=== PATIENT | male | born 1975 | race Caucasian/White ===

== ENCOUNTER 2020-09-14 12:31 | Emergency (ER) | payer OTHER, SELFPAY ==
[2020-09-14 12:35] VITALS: BP 125/84; PULSE 99; RESP 20; TEMP 36.8; O2SAT 98
--- NOTE | 2020-09-14 13:32 | ED.GENADULT ---
HPI - General Adult General Chief complaint: Ear Stated complaint: ear pain, throat pain x 1 week Time Seen by Provider: 09/14/20 12:43 Source: patient Mode of arrival: ambulatory Limitations: no limitations History of Present Illness HPI narrative: Patient presents with chief complaint of bilateral ear pain today left worse than right accompanied by sore throat for 1 week. Patient denies fever, chills, nausea, vomiting, inability to handle secretions. Patient denies any bleeding or drainage from the ears. Patient denies any cough, shortness of breath or chest pain. Related Data Allergies Allergy/AdvReac Type Severity Reaction Status Date / Time No Known Allergies Allergy Unverified 02/22/16 18:40 Review of Systems Review of Systems: Narrative: CONSTITUTIONAL: Denies fever, chills, or sweats. EYES: Denies visual changes, redness, or discharge. ENT: Reports otalgia and sore throat denies rhinorrhea, congestion CARDIOVASCULAR: Denies chest pain, palpitations, or edema. RESPIRATORY: Denies cough or dyspnea. GASTROINTESTINAL: Denies abdominal pain, nausea, vomiting, or diarrhea. GENITOURINARY: Denies dysuria or hematuria. SKIN: Denies rash or itching. MUSCULOSKELETAL: Denies back pain, joint pain, or myalgia. NEUROLOGIC: Denies headache, numbness, dizziness, or weakness. PSYCHIATRIC: Denies anxiety or depression. Exam Narrative: Exam Narrative: GENERAL: Well-appearing, well-nourished, and in no acute distress. HEAD: Normocephalic, atraumatic. EYES: PERRLA and EOMI. ENT: Nares clear, no rhinorrhea or epistaxis. Mucous membranes moist. Oropharynx without tonsillar hypertrophy exudate or other lesions. No uvula deviation. Bilateral TMs pearly fluid bilaterally left greater than right no erythema or pus. No drainage. Patient speaking fluently handling secretions without difficulty. NECK: Supple. No adenopathy or masses. Range of motion intact. CHEST: Clear to auscultation. No respiratory distress. No wheezes rales or rhonchi HEART: Regular rate and rhythm. EXTREMITIES: Normal range of motion. No edema. SKIN: Warm, dry, no rash. NEURO: No focal deficits. Alert and oriented x3. PSYCH: Normal mood and affect. Course Vital Signs Vital signs: Vital Signs Temperature 98.2 F 09/14/20 12:35 Pulse Rate 99 03/08/21 12:35 Respiratory Rate 20 09/14/20 12:35 Blood Pressure 125/84 09/14/20 12:35 Pulse Oximetry 98 09/14/20 12:35 Temperature 98.2 F 09/14/20 12:35 Pulse Rate 80 09/14/20 14:16 Respiratory Rate 18 09/14/20 14:16 Blood Pressure 132/65 09/14/20 14:16 Pulse Oximetry 99 09/14/20 14:16 Medical Decision Making MDM Narrative Medical decision making narrative: Patient stress test was negative. Patient does not show signs of peritonsillar abscess. Patient does not have infection in his ears presently. He does have some fluid. Patient given Zyrtec, Flonase, Mucinex. Patient instructed to follow-up with his primary care or ear nose throat for further investigation if symptoms persist. Patient verbalized understanding agreement with plan he denies any other questions or concerns Differential Diagnosis Differential Diagnosis: Otitis media, serous otitis media, peritonsillar abscess, strep, tympanic membranes, mononucleosis Vital Signs Vital Signs: Vital Signs Temperature 98.2 F 09/14/20 12:35 Pulse Rate 99 09/14/20 12:35 Respiratory Rate 20 09/14/20 12:35 Blood Pressure 125/84 09/14/20 12:35 Pulse Oximetry 98 09/14/20 12:35 Temperature 98.2 F 09/14/20 12:35 Pulse Rate 80 09/14/20 14:16 Respiratory Rate 18 09/14/20 14:16 Blood Pressure 132/65 09/14/20 14:16 Pulse Oximetry 99 09/14/20 14:16 Lab Data Labs: Strep Screen Presumptive Negative *(Reference Range: Negative)* Discharge Plan Discharge Clinical Impression: Acute serous otitis media Qualifiers: Laterality: bilateral Recurrenc
[2020-09-14 14:16] VITALS: BP 132/65; PULSE 80; RESP 18; O2SAT 99
== END 2020-09-14 14:18 | disposition home or self-care (01) ==
PROVIDERS: Emergency Provider Emergency Medicine
DX: H65.03 Acute serous otitis media, bilateral (principal)
CPT/HCPCS: 87081; 87880; 99283